=== PATIENT | male | born 1955 | race Caucasian/White ===

== ENCOUNTER 2016-10-11 07:06 | Day surgery (SDC) | payer BC, OTHER ==
[2016-10-11] MEDS ORDERED: PHENYLEPHRINE HCL 10 MG/1 ML SINGLE DOSE VIAL ONE (07:21)
[2016-10-11] MEDS ORDERED: LIDOCAINE HCL/PF 2% SDV 5ML VIAL ONE (07:21)
[2016-10-11] MEDS ORDERED: SUCCINYLCHOLINE CHLORIDE 200 MG/10 ML VIAL ONE (07:21)
[2016-10-11] MEDS ORDERED: ePHEDrine SULFATE 50 MG/1 ML AMPULE ONE (07:21)
[2016-10-11 07:47] VITALS: BMI 28.1
[2016-10-11 08:37] VITALS: TEMP 97.5
[2016-10-11 10:01] VITALS: BP 135/81; PULSE 68
--- NOTE | 2016-10-14 13:58 | PATH ---
Surgical Pathology Report Patient Name: ANURAG QUINONES [facility]. Rec. #: [id number] /Age/Gender: 1955 (Age: 61) / M Account: [id number] Location: U-ENDOSCOPY Taken: 10/11/2016 Received: 10/11/2016 Reported: 10/14/2016 Physicians: Sergey Lobo M.D. Specimen(s) Received A: BX HIATAL HERNIA B: BX 32 CM GE JUNCTION C: BX 30 CM ESOPHAGUS D: BX 28 CM Clinical History Bocanegra's esophagus Hiatal hernia, Bocanegra's esophagus, rule out fungal esophagitis Final Diagnosis A. HIATAL HERNIA, BIOPSY: COLUMNAR CARDIA-TYPE AND OXYNTIC MUCOSA WITH CHRONIC INFLAMMATION AND FOCAL INTESTINAL METAPLASIA (SEE COMMENT). NEGATIVE FOR DYSPLASIA. Comment: The findings are applications sales representative of Bocanegra's esophagus in proper endoscopic settings. B. GE JUNCTION, 32 CM, BIOPSY: FOCAL LOW GRADE DYSPLASIA ARISING IN BOCANEGRA'S MUCOSA (SEE COMMENT). Comment: The case was reviewed intradepartmentally with agreement on the diagnosis. The case was discussed with Dr. Lobo on 10/14/16. C. ESOPHAGUS, 30 CM, BIOPSY: SQUAMOUS AND COLUMNAR MUCOSA WITH ACTIVE AND CHRONIC INFLAMMATION WITH FOCAL SURFACE EROSION AND INTESTINAL METAPLASIA (CONSISTENT WITH BOCANEGRA'S ESOPHAGUS). NEGATIVE FOR DYSPLASIA. Comment: Special stain for fungal organisms is pending; results will be reported in an addendum. D. ESOPHAGUS, 28 CM, BIOPSY: SQUAMOUS AND COLUMNAR MUCOSA WITH ACTIVE AND CHRONIC INFLAMMATION AND INTESTINAL METAPLASIA (CONSISTENT WITH BOCANEGRA'S ESOPHAGUS). NEGATIVE FOR DYSPLASIA. Electronically Signed Eze Velázquez M.D. Addendum Reported: 10/15/2016 Addendum Diagnosis Part C: Rare fungal organisms morphologically compatible with rl species identified with PAS stain. Eze Velázquez M.D. Gross Description A. Received in formalin, labeled "biopsy hiatal hernia" are 2 dean, irregular portions of soft tissue measuring 0.2 and 0.4 cm in greatest dimension. The specimens are submitted in toto in one cassette. B. Received in formalin, labeled "biopsy 32 cm GE junction" are 3 dean, irregular portions of soft tissue ranging from 0.1-0.2 cm in greatest dimension. The specimens are submitted in toto in one cassette. C. Received in formalin, labeled "biopsy 30 cm esophagus" are 4 dean, irregular portions of soft tissue ranging from 0.1-0.6 cm in greatest dimension. The specimens are submitted in toto in one cassette. D. Received in formalin, labeled "biopsy 28 cm" are 4 dean, irregular portions of soft tissue ranging from 0.2-0.3 cm in greatest dimension. The specimens are submitted in toto in one cassette. 10/11/201610/11/2016
== END 2016-10-11 10:06 | disposition home or self-care (01) ==
LOC: JASU-ENDO 07:06
PROVIDERS: ATTEND Internal Medicine Gastroenterology
PROC: 0DB38ZX Excision of Lower Esophagus, Via Natural or Artificial Opening Endoscopic, Diagnostic (ICD-10-PCS; principal; 2016-10-11 08:00)
DX: K22.70 Barrett's esophagus without dysplasia (principal); K44.9 Diaphragmatic hernia without obstruction or gangrene
CPT/HCPCS: 88305-TC; 88312-TC

== ENCOUNTER 2019-03-29 08:13 | Day surgery (SDC) | payer BC, OTHER ==
[2019-03-28 12:46] VITALS: BMI 27.6
[2019-03-29 09:45] VITALS: TEMP 97.7
[2019-03-29 13:17] VITALS: BP 118/72; PULSE 71
--- NOTE | 2019-03-30 14:30 | PATH ---
Surgical Pathology Report Patient Name: ANURAG QUINONES [facility]. Rec. #: [id number] /Age/Gender: 1955 (Age: 63) / M Account: [id number] Location: [facility] SUR[facility] Taken: 03/29/2019 Received: 03/29/2019 Reported: 03/30/2019 Physicians: Moose Calle D.O. Specimen(s) Received A: DESCENDING COLON POLYP #1 B: DESCENDING COLON POLYP #2 C: SIGMOID POLYP D: RECTAL SIGMOID POLYP E: RECTAL SIGMOID POLYP #2 F: RECTAL POLYP Clinical History Colon screening, history of colon polyps Postoperative diagnosis: Diverticulosis, colon polyps, hemorrhoids Final Diagnosis A. DESCENDING COLON #1, POLYP, BIOPSY: TUBULAR ADENOMA. B. DESCENDING COLON #2, POLYP, POLYPECTOMY: TUBULAR ADENOMA. C. SIGMOID COLON, POLYP, BIOPSY: HYPERPLASTIC POLYP. D. RECTAL SIGMOID POLYP, POLYPECTOMY: TUBULAR ADENOMA. E. RECTAL SIGMOID POLYP #2, POLYPECTOMY: TUBULAR ADENOMA. F. RECTAL POLYP, BIOPSY: HYPERPLASTIC POLYP. Electronically Signed Tangela Sampson M.D. Gross Description A. Received in formalin, labeled "#1 biopsy descending colon polyp" is a dean, irregular portion of soft tissue measuring 0.3 cm. in greatest dimension. The specimen is submitted in toto in one cassette. B. Received in formalin, labeled "#2 descending colon polyp (cold snare)" is a dean, irregular portion of soft tissue measuring 0.9 cm. in greatest dimension. The specimen is submitted in toto in one cassette. C. Received in formalin, labeled "biopsy sigmoid polyp" is a dean, irregular portion of soft tissue measuring 0.1 cm. in greatest dimension. The specimen is submitted in toto in one cassette. D. Received in formalin, labeled "rectal sigmoid polyp cold snare" is a dean, irregular portion of soft tissue measuring 0.4 cm. in greatest dimension. The specimen is submitted in toto in one cassette. E. Received in formalin, labeled "rectal sigmoid polyp cold snare #2" are 2 dean, irregular portions of soft tissue measuring 0.1 and 0.3 cm. in greatest dimension. The specimens are submitted in toto in one cassette. F. Received in formalin, labeled "biopsy rectal polyp" is a dean, irregular portion of soft tissue measuring 0.2 cm. in greatest dimension. The specimen is submitted in toto in one cassette. 03/29/2019 [facility]03/29/2019
== END 2019-03-29 10:55 | disposition home or self-care (01) ==
LOC: JASU-SURG 08:13
PROVIDERS: ATTEND Internal Medicine Gastroenterology
PROC: 0DBN8ZX Excision of Sigmoid Colon, Via Natural or Artificial Opening Endoscopic, Diagnostic (ICD-10-PCS; 2019-03-29)
PROC: 0DBP8ZX Excision of Rectum, Via Natural or Artificial Opening Endoscopic, Diagnostic (ICD-10-PCS; 2019-03-29)
PROC: 0DBM8ZX Excision of Descending Colon, Via Natural or Artificial Opening Endoscopic, Diagnostic (ICD-10-PCS; principal; 2019-03-29 09:00)
DX: Z12.11 Encounter for screening for malignant neoplasm of colon (principal); K57.30 Diverticulosis of large intestine without perforation or abscess without bleeding; K62.1 Rectal polyp; D12.4 Benign neoplasm of descending colon; D12.7 Benign neoplasm of rectosigmoid junction; D12.5 Benign neoplasm of sigmoid colon; K64.8 Other hemorrhoids
CPT/HCPCS: 88305-TC

== ENCOUNTER 2022-05-04 05:04 | Day surgery (SDC) | payer OTHER, BC ==
[2022-05-03 11:47] VITALS: BMI 25.8
[2022-05-04 10:25] VITALS: BP 159/90; PULSE 74; RESP 18; TEMP 97.3
== END 2022-05-04 10:20 | disposition home or self-care (01) ==
LOC: JASU-ENDO 05:04
PROVIDERS: ATTEND Internal Medicine Gastroenterology
PROC: 0DBL8ZX Excision of Transverse Colon, Via Natural or Artificial Opening Endoscopic, Diagnostic (ICD-10-PCS; 2022-05-04)
PROC: 0DBK8ZX Excision of Ascending Colon, Via Natural or Artificial Opening Endoscopic, Diagnostic (ICD-10-PCS; principal; 2022-05-04 08:45)
DX: Z12.11 Encounter for screening for malignant neoplasm of colon (principal); D12.2 Benign neoplasm of ascending colon; D12.3 Benign neoplasm of transverse colon; K57.30 Diverticulosis of large intestine without perforation or abscess without bleeding; K64.8 Other hemorrhoids; Z86.010 Personal history of colon polyps
CPT/HCPCS: 88305-TC

== ENCOUNTER 2023-10-21 11:36 | Emergency (ER) | payer OTHER, BC ==
[2023-10-21 11:50] VITALS: BP 174/62; PULSE 77; RESP 17; TEMP 98.8; BMI 26.9
[2023-10-21 13:15] LABS: BASO % 1.1 % (0-2.0); EOS % 0.7 % (0-4.5); LYMPH % 16.9 % (8-40); MCHC 33.9 g/dl (32.0-35.9); MEAN CELL VOLUME 91.3 fl (80-96); MEAN PLT VOLUME 9.5 fl (7.5-11.1); MONO % 7.4 % (3.8-10.2); NEUT % 73.9 % (42.8-82.8); PLATELET COUNT 223 10^3/uL (134-434); RBC 5.48 M/mm3 (4.00-5.60); RDW 13.8 % (11.9-15.9); WHITE BLOOD COUNT 10.5 K/mm3 (4.0-10.0)
[2023-10-21 13:30] LABS: INR 0.96 (0.83-1.09); POTASSIUM 4.1 mmol/L (3.5-5.1); PROTHROMBIN TIME (PATIENT) 10.9 SEC (9.7-13.0)
[2023-10-21 13:31] LABS: CALCIUM 8.8 mg/dL (8.5-10.1)
[2023-10-21 13:32] LABS: ALBUMIN 3.9 g/dl (3.4-5.0)
[2023-10-21 13:33] LABS: BLOOD UREA NITROGEN 18.4 mg/dL (7-18)
[2023-10-21 13:35] LABS: CREATININE 0.9 mg/dL (0.55-1.3)
[2023-10-21 13:37] LABS: TOT PROT 6.8 g/dl (6.4-8.2)
== END 2023-10-21 15:59 | disposition home or self-care (01) ==
LOC: JER 11:36
DX: R20.0 Anesthesia of skin (principal); R20.2 Paresthesia of skin
CPT/HCPCS: 36415; 70450-TC; 70551-TC; 80053; 80061; 82550; 82553; 83036; 84484; 85025; 85610; 85730; 86850; 86900; 86901; 93005; 93010; 99285-25

== ENCOUNTER 2024-04-16 05:26 | Day surgery (SDC) | payer OTHER, BC ==
[2024-04-12 11:06] VITALS: BMI 27.1
[2024-04-16] MEDS ORDERED: PROPOFOL 20 ML ONE ×2 (07:53→08:16)
[2024-04-16] MEDS ORDERED: ROCURONIUM BROMIDE 50 MG/5 ML SYRINGE ONE (07:53)
[2024-04-16] MEDS ORDERED: SUCCINYLCHOLINE CHLORIDE 200 MG/10 ML SYRINGE ONE ×2 (07:55→08:21)
[2024-04-16] MEDS ORDERED: DEXAMETHASONE SOD PHOSPHATE 4 MG/1 ML VIAL ONE (08:22)
[2024-04-16] MEDS ORDERED: KETOROLAC TROMETHAMINE 30 MG/1 ML VIAL ONE (08:22)
[2024-04-16] MEDS ORDERED: MIDAZOLAM HCL 2 MG/2 ML SINGLE DOSE VIAL ONE (08:22)
[2024-04-16] MEDS ORDERED: ONDANSETRON 4 MG/2 ML VIAL ONE (08:22)
[2024-04-16] MEDS: ceFAZolin SODIUM 1 GM VIAL IVPB ONE (08:45)
[2024-04-16] MEDS ORDERED: ONDANSETRON 4 MG/2 ML VIAL IVPUSH PRN (10:24)
[2024-04-16] MEDS ORDERED: LACTATED RINGERS SOLUTION 1,000 ML IV SCH (10:30)
[2024-04-16] MEDS: SOLIFENACIN SUCCINATE 5 MG TAB PO SCH (11:30)
[2024-04-16 12:31] VITALS: BP 136/84; PULSE 78; RESP 18; TEMP 97.4
== END 2024-04-16 13:15 | disposition home or self-care (01) ==
LOC: JASU-SURG 05:26
PROVIDERS: ATTEND Urology
PROC: 0T7D8DZ Dilation of Urethra with Intraluminal Device, Via Natural or Artificial Opening Endoscopic (ICD-10-PCS; principal; 2024-04-16 08:15)
DX: N40.0 Benign prostatic hyperplasia without lower urinary tract symptoms (principal)
CPT/HCPCS: C9740; L8699; 94760